=== PATIENT | female | born 2000 | race Caucasian/White ===

== ENCOUNTER 2020-05-19 19:28 | Observation (INO) ==
[2020-05-19] MEDS ORDERED: Isovue-370 500 ML BOTTLE IVP ONE ×2 (19:57→21:00)
[2020-05-19] MEDS ORDERED: 0.9 % Sodium Chloride 1,000 ML IVC ONE (20:26)
[2020-05-19] MEDS ORDERED: ceFAZolin 2,000 MG in Water for inj. (sterile) 20 ML IVP ONE (20:26)
[2020-05-19 20:36] LABS: Basophils # 0.1 K/mcL (0.0-0.2); Basophils % 0.6 %; Eosinophils # 0.6 K/mcL (0.0-0.6); Eosinophils % 6.2 %; Hematocrit 36.3 % (35.3-44.9); Hemoglobin 11.1 g/dL (11.5-15.4); Immature Granulocytes % 4.3 % (0-4); Lymphocytes # 2.1 K/mcL (0.6-4.6); Lymphocytes % 20.8 %; Mean Corpuscular HGB Conc 30.6 g/dL (31.6-35.5); Mean Corpuscular Hemoglobin 22.9 pg (28.0-33.3); Mean Corpuscular Volume 74.8 fL (83.0-100.0); Mean Platelet Volume 9.5 fL (9.4-12.4); Monocytes # 0.7 K/mcL (0.0-1.3); Monocytes % 6.9 %; Platelet Count 591 K/mcL (140-400); Red Blood Count 4.85 M/mcL (3.82-4.97); Red Cell Distribution Width 15.9 % (11.5-14.5); Segmented Neutrophils % 61.2 %; White Blood Count 9.8 K/mcL (4.3-11.1)
[2020-05-19 20:53] LABS: BUN/Creatinine Ratio 17 (6-26); Blood Urea Nitrogen 14 mg/dL (6-20); C-Reactive Protein 92 mg/L (Less than 10); Calcium 9.4 mg/dL (8.6-10.3); Carbon Dioxide 28 mEq/L (23-29); Chloride 102 mEq/L (98-107); Glucose 120 mg/dL (70-105); Osmolality,Calculated 290 (280-300); Potassium 3.9 mEq/L (3.5-5.1); Sodium 139 mEq/L (136-145); eGFR For African Americans > 60 (> 60); eGFR For Non-African Americans > 60 (> 60)
[2020-05-19] MEDS ORDERED: Piperacillin/Tazobactam 3.375 GM in 0.9 % Sodium Chloride Mini Bag 100 ML IVPB ONE (21:47)
[2020-05-19] MEDS ORDERED: Vancomycin 2,000 MG/520 ML IV.SOLN IVPB ONE (21:47)
[2020-05-19] MEDS ORDERED: Clindamycin 900 MG/50 ML 900 MG/50 ML IV.SOLN IVPB ONE (21:47)
[2020-05-19] MEDS ORDERED: Water for inj. (sterile) 20 ML IV ONE (22:05)
[2020-05-19] MEDS ORDERED: Piperacillin/Tazobactam 3.375 GM in Water for inj. (sterile) 20 ML IVP ONE (22:15)
[2020-05-19] MEDS ORDERED: *HR* FentaNYL (PF) 100 MCG/2 ML VIAL IVP ONE (22:59)
[2020-05-20] MEDS ORDERED: Naloxone 0.4 MG/ML INJ IVP PRN (00:56)
[2020-05-20] MEDS ORDERED: Ondansetron ODT 4 MG TAB.RAPDIS SL PRN (00:56)
[2020-05-20] MEDS ORDERED: Vancomycin 1,750 MG in 0.9 % Sodium Chloride 250 ML IVPB SCH (01:00)
[2020-05-20] MEDS: 0.9 % Sodium Chloride 1,000 ML IVC SCH ×2 (04:33→16:03)
[2020-05-20 05:12] LABS: INR 1.3; Prothrombin Time 14.7 Seconds (9.4-12.1)
[2020-05-20 05:27] LABS: % Iron Saturation 11 % (15-50); Alanine Aminotransferase 18 Units/L (7-52); Alkaline Phosphatase 67 Units/L (34-104); Aspartate Amino Transferase 14 Units/L (13-39); BUN/Creatinine Ratio 15 (6-26); Bilirubin,Total 0.2 mg/dL (0.3-1.0); Blood Urea Nitrogen 10 mg/dL (6-20); C-Reactive Protein 57 mg/L (Less than 10); Calcium 8.4 mg/dL (8.6-10.3); Carbon Dioxide 26 mEq/L (23-29); Chloride 106 mEq/L (98-107); Glucose 115 mg/dL (70-105); Iron 32 mcg/dL (50-170); Osmolality,Calculated 286 (280-300); Phosphorous 3.5 mg/dL (2.7-4.5); Potassium 3.6 mEq/L (3.5-5.1); Sodium 138 mEq/L (136-145); Transferrin 209 mg/dL (203-362); eGFR For African Americans > 60 (> 60); eGFR For Non-African Americans > 60 (> 60)
[2020-05-20 06:18] LABS: Thyroid Stimulating Hormone 2.025 mcIU/mL (0.340-5.600)
[2020-05-20 06:24] LABS: Ferritin 41 ng/mL (10-120)
[2020-05-20] MEDS: Piperacillin/Tazobactam 3.375 GM in 0.9 % Sodium Chloride Mini Bag 100 ML IVPB SCH ×3 (07:49→23:49)
[2020-05-20] MEDS: Acetaminophen 325 MG TABLET PO PRN ×2 (07:49→21:09)
[2020-05-20] MEDS: Vancomycin 1,250 MG/262.5 ML IV.SOLN IVPB SCH ×3 (09:00→23:06)
[2020-05-20 17:13] LABS: Estimated Average Glucose 137 mg/dl; Hemoglobin A1C 6.4 %
[2020-05-21] MEDS: Vancomycin 1,250 MG/262.5 ML IV.SOLN IVPB SCH (06:10)
[2020-05-21 06:17] LABS: Basophils # 0.1 K/mcL (0.0-0.2); Basophils % 0.7 %; Eosinophils # 0.6 K/mcL (0.0-0.6); Eosinophils % 6.1 %; Hematocrit 32.5 % (35.3-44.9); Hemoglobin 9.6 g/dL (11.5-15.4); Immature Granulocytes % 5.3 % (0-4); Lymphocytes # 2.8 K/mcL (0.6-4.6); Lymphocytes % 28.5 %; Mean Corpuscular HGB Conc 29.5 g/dL (31.6-35.5); Mean Corpuscular Hemoglobin 22.1 pg (28.0-33.3); Mean Corpuscular Volume 74.7 fL (83.0-100.0); Mean Platelet Volume 9.3 fL (9.4-12.4); Monocytes # 0.7 K/mcL (0.0-1.3); Monocytes % 7.1 %; Neutrophils # 5.2 K/mcL (1.6-8.9); Platelet Count 509 K/mcL (140-400); Red Blood Count 4.35 M/mcL (3.82-4.97); Red Cell Distribution Width 15.9 % (11.5-14.5); Segmented Neutrophils % 52.3 %; White Blood Count 9.9 K/mcL (4.3-11.1)
[2020-05-21 06:36] LABS: Anisocytosis 1+ (Not Present); Platelet Estimate Normal (Normal); Reactive Lymphocytes Present (Not Present)
[2020-05-21] MEDS ORDERED: Vancomycin 1,500 MG/265 ML IV.SOLN IVPB SCH (07:00)
[2020-05-21] MEDS: Piperacillin/Tazobactam 3.375 GM in 0.9 % Sodium Chloride Mini Bag 100 ML IVPB SCH (07:28)
[2020-05-21 12:03] VITALS: BP 110/73
[2020-05-21 13:26] LABS: Hematocrit 33.2 % (35.3-44.9); Hemoglobin 9.9 g/dL (11.5-15.4)
== END 2020-05-21 15:52 | disposition home or self-care (01) ==
LOC: 2ANU 19:28 → EMEROOARM 19:28 → SUATTDRO 05-20 00:19 → 2ANU 05-20 00:46
PROVIDERS: ADMIT Student in an Organized Health Care Education/Training Program; ATTEND Internal Medicine